=== PATIENT | male | born 1980 | race Caucasian/White ===

== ENCOUNTER 2024-01-01 13:16 | Emergency (ER) | payer OTHER, SELFPAY | END 2024-01-01 15:38 | disposition home or self-care (01) | LOC: CSHERS 13:16 | DX: I10 Essential (primary) hypertension (principal); F17.210 Nicotine dependence, cigarettes, uncomplicated | CPT/HCPCS: 93005 ==

== ENCOUNTER 2025-10-28 08:39 | Emergency (ER) | payer OTHER ==
[2025-10-28 09:21] LABS: Glucose, Urine (Dipstick) Normal (Negative); Leukocyte 500 (Negative); Protein, Urine (Dipstick) 100 mg/dl (Neg-Trace); Specific Gravity, Urine 1.020 (1.005-1.030)
[2025-10-28 09:31] LABS: CAUTI Indications for Culture Dysuria,urgency,freq; WBC/HPF 21-50 HPF (0-3)
[2025-10-28 09:32] LABS: Bacteria/HPF 1+ HPF (None Seen); Mucous/LPF 1+ LPF (<2+)
[2025-10-28 09:34] LABS: Urine Culture Reflex Yes Yes
[2025-10-28] MEDS ORDERED: cefTRIAXone (ROCEPHIN) 1 GM VIAL ONE (09:52)
== END 2025-10-28 10:10 | disposition home or self-care (01) ==
LOC: CSHERS 08:39
DX: N30.01 Acute cystitis with hematuria (principal); I10 Essential (primary) hypertension; F17.290 Nicotine dependence, other tobacco product, uncomplicated
CPT/HCPCS: 81001; 87077; 87086; 87186; 96372; 99283; J0696